=== PATIENT | female | born 2000 | race Caucasian/White ===

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

== ENCOUNTER 2019-08-18 22:02 | Outpatient (REF) | payer MEDICAID, SELFPAY ==
[2018-08-31 14:39] VITALS: BMI 24.7
[2019-08-18 22:02] VITALS: BP 128/75; PULSE 71; RESP 16; TEMP 36.6; O2SAT 98; BMI 19.1
--- NOTE | 2019-08-18 22:15 | ED.DCSUM_ITS ---
History of Present Illness Chief Complaint: Abd Pain Informant: Patient Onset: Weeks - 1.5 weeks ago Context: Sudden Onset Timing: Continuous Quality: Burning pain Location: Superior and lateral umbilicus Current Severity: Mild Maximum Severity: Moderate Worsened by: Twisting Relieved by: Nothing Associated Symptoms: No associated symptoms Narrative: Patient is a 18-year-old female who presents with burning anterior midline abdominal pain that is superior and lateral the umbilicus. She states there is a lump. There is no history of trauma. She denies fever, chills or night sweats. She denies nausea, vomiting diarrhea. She denies dysuria, frequency, urgency or hematuria. She denies change in color of her skin. She denies weight loss. She denies prior episode. She has not taken anything for the discomfort. Prior similar symptoms: No Recent Illness/Hospitalization: No - Past Medical History (1) No significant past medical history Status: Acute Past Medical History - Allergies and Home Meds Allergies/Adverse Reactions: Allergies amoxicillin trihydrate [From Augmentin] Adverse Reaction (Verified 08/18/19 22:05) Hives potassium clavulanate [From Augmentin] Adverse Reaction (Verified 08/18/19 22:05) Hives Primary Care Physician: Barrington Johnson MD [Primary Care Provider] - Prior records reviewed: Yes Lives: Spouse/ Significant Other, With Family Smoking Status: Current every day smoker Alcohol: Rare Drugs: None Review of Systems General: Denies: Chills, Fever, Malaise, Sweats Gastrointestinal: Reports: Abdominal pain. Denies: Nausea, Vomiting, Diarrhea, Constipation, Melena, Hematochezia, -, - Musculoskeletal: Denies: Myalgias, Arthralgias, Neck pain, Back pain, Swelling, Extremity Pain, -, - Skin: Denies: Rash, Wounds Neurological: Denies: Weakness, Parasthesia, Numbness Hematologic: Denies: Easy bruising, Easy bleeding Physical Exam Vital Signs/Narrative: Vital Signs Temp Pulse Resp BP Pulse Ox 08/18/19 22:02 97.9 F 71 16 128/75 H 98 Inital Vital Signs reviewed: Yes General: Well nourished, Well developed, No Acute Distress Head: Normocephalic, Atraumatic Eyes: Perrl, EOMI. Negative for: Pale conjunctiva, Scleral icterus Cardiovascular: Regular rate, Regular rhythm, No murmurs Respiratory: No distress, CTA bilaterally, Chest nontender Abdomen: Soft, Nondistended, Normal bowel sounds, No masses, Tender, - - The area in question is patient's rectus muscle. Having her flex her neck causes the pain to be worse and the area in question is more prominent.. Negative for: Guarding, Rebound tenderness Neurological: Alert, Oriented x3, Cranial nerves II-XII grossly intact, Normal Strength, Normal Sensation Psychological: Normal affect, Normal Mood Diagnostic/Tx/Re-eval - Medical Decision Making Patient presents with abdominal pain. Based on history and physical this is abdominal wall pain i.e. the rectus muscle. Patient's been informed ice anti- inflammatory and if no improvement after a week follow-up with her primary care provider, Dr. Barrington Johnson. ED Disposition - Plan for ED Patient: Disposition: Home or Assisted Living Diagnosis: Abdominal wall pain in periumbilical region Instructions: MUSCLE STRAIN, Abdomen Referrals: Barrington Johnson MD [Primary Care Provider] - Additional Instructions: Take either 2 Aleve tablets every 12 hours or 3 Advil tablets every 8 hours for pain for the next 3 to 5 days. Apply ice 20 to 30 minutes per application 6-8 times a day.
[2019-08-18 23:02] VITALS: RESP 15
== END 2019-08-18 23:02 | disposition home or self-care (01) ==
LOC: ED 22:02
PROVIDERS: Family Provider Pediatrics; PCP Pediatrics; Visit Provider Emergency Medicine
DX: R10.33 Periumbilical pain (principal); F17.200 Nicotine dependence, unspecified, uncomplicated; Z88.0 Allergy status to penicillin
CPT/HCPCS: 99282

== ENCOUNTER → 2019-09-13 16:16 | Outpatient (CLI) | payer MEDICAID, SELFPAY ==
[2019-08-18 22:02] VITALS: BMI 19.1
== END ==
PROVIDERS: Family Provider Pediatrics; PCP Pediatrics; Referring Provider Nurse Practitioner Women's Health; Visit Provider Nurse Practitioner Women's Health
DX: N92.6 Irregular menstruation, unspecified (principal)
CPT/HCPCS: 36415; 84702

== ENCOUNTER → 2019-09-22 16:47 | Outpatient (CLI) | payer MEDICAID, SELFPAY ==
[2019-09-22 19:33] LABS: Chlamydia Trachomatis by PCR Negative (Negative); Neisserai gonorrhoeae by PCR Negative (Negative); Probe Check PASS; Sample Adequacy Control PASS; Specimen Processing Control PASS
== END ==
PROVIDERS: Referring Provider Obstetrics & Gynecology; Visit Provider Obstetrics & Gynecology
DX: Z34.00 Encounter for supervision of normal first pregnancy, unspecified trimester (principal)
CPT/HCPCS: 87077; 87086; 87088; 87186; 87491; 87591

== ENCOUNTER → 2019-11-17 15:03 | Outpatient (CLI) | payer MEDICAID, SELFPAY ==
[2019-11-17 14:33] VITALS: BMI 19.5
[2019-11-17 16:27] LABS: Absolute Lymphocyte Count 3.68 X10^3/uL (0.83-4.51); Absolute Neutrophil Count 6.6 X10^3/uL (2.0-7.7); Basophil# 0.02 X10^3/uL; Basophil% 0.2 % (0-1); Eosinophil# 0.06 X10^3/uL; Eosinophils% 0.6 % (0-5); Hematocrit 36.3 % (37-47); Hemoglobin 12.2 g/dL (12.0-15.0); Lymphocyte # 3.68 X10^3/ul (4.0); Lymphocyte % 33.9 % (19-41); Mean Corp Hgb Conc 33.6 g/dL (32-36); Mean Corpuscular Hgb 30.4 pg (27.0-32.0); Mean Corpuscular Volume 90.5 fL (81-99); Mean Platelet Vol. 9.4 fl (6.2-12.0); Monocyte# 0.43 X10^3/uL; NRBC Flagged by Analyzer 0 % (0-5); Neutrophil # 6.61 X10^3/uL (2.7-7.7); Neutrophil % 60.9 % (47-70); Platelet Count 188 K/mm3 (150-450); RBC Distribution Width CV 14.4 % (11.6-14.6); RBC Distribution Width SD 47.5 fl (35.1-43.9); Red Blood Count 4.01 M/mm3 (4.2-5.4); White Blood Count 10.8 K/mm3 (4.4-11.0)
[2019-11-17 18:03] LABS: HIV - WCH Non-Reactive (Nonreactive); Hepatitis B Surface Antigen Non-Reactive (Nonreactive); Rubella IgG 25.3 IU/mL
[2019-11-23 02:39] LABS: Rapid Plasmin Reagin (RPR) NONREACTIVE (NONREACTIVE)
== END ==
PROVIDERS: PCP Pediatrics; Referring Provider Obstetrics & Gynecology; Visit Provider Obstetrics & Gynecology
DX: Z34.00 Encounter for supervision of normal first pregnancy, unspecified trimester (principal)
CPT/HCPCS: 36415; 85025; 86592; 86703; 86762; 86850; 86900; 86901; 87340

== ENCOUNTER 2020-02-15 17:00 | Outpatient (CLI) | payer MEDICAID, SELFPAY ==
[2020-02-15 17:14] VITALS: BMI 24.7
[2020-02-15 17:26] VITALS: BMI 24.4
[2020-02-15 17:42] VITALS: BP 115/63; PULSE 90; TEMP 37.2
[2020-02-15 18:15] LABS: ROM Internal Control Test YES-OK TO RESULT pt. (Internal QC); ROM Patient Test Negative (Negative)
--- NOTE | 2020-02-15 18:18 | OB.TRI.PN_ITS ---
Progress Notes Date of Service: 02/15/20 Progress Note: Patient presents for triage evaluation secondary to irregular ctx FHT: 150 Moderate variability reactive no decelerations category I tracing [place]: no regular Contractions Assessment and plan: 19 yo @ 30w6d presents with contractions. no significant contractions or cervical change, Reactive NST, reassuring maternal and status patient discharged to home to follow-up as scheduled. patient has been noncompliant with medical visits in . See problem list details for additional plan information. Laboratory Studies: Laboratory Tests 02/15/20 Range/Units 17:20 Vag Amniotic Fld Detect Negative (Negative) Multi Select Codes - Urinary/Genital Urinary/Genital CPT Codes: 02349-67 non-stress test Interp
== END 2020-02-15 18:25 | disposition home or self-care (01) ==
LOC: WPOUT 17:16 → WP 17:16
PROVIDERS: Visit Provider Obstetrics & Gynecology
DX: Z34.83 Encounter for supervision of other normal pregnancy, third trimester (principal); Z3A.30 30 weeks gestation of pregnancy
CPT/HCPCS: 59025; 59050; 84112; 99218; G0378

== ENCOUNTER → 2020-02-23 16:24 | Outpatient (CLI) | payer MEDICAID, SELFPAY ==
[2020-02-23 15:48] VITALS: BMI 24.4
[2020-02-23 17:40] LABS: Absolute Lymphocyte Count 2.72 X10^3/uL (0.83-4.51); Absolute Neutrophil Count 8.7 X10^3/uL (2.0-7.7); Basophil# 0.02 X10^3/uL; Basophil% 0.2 % (0-1); Eosinophil# 0.07 X10^3/uL; Eosinophils% 0.6 % (0-5); Hematocrit 33.5 % (37-47); Hemoglobin 11.1 g/dL (12.0-15.0); Lymphocyte # 2.72 X10^3/ul (4.0); Mean Corp Hgb Conc 33.1 g/dL (32-36); Mean Corpuscular Hgb 29.6 pg (27.0-32.0); Mean Corpuscular Volume 89.3 fL (81-99); Monocyte% 5.6 % (0-10); NRBC Flagged by Analyzer 0 % (0-5); Neutrophil # 8.72 X10^3/uL (2.7-7.7); Neutrophil % 70.3 % (47-70); Platelet Count 156 K/mm3 (150-450); RBC Distribution Width SD 41.7 fl (35.1-43.9); Red Blood Count 3.75 M/mm3 (4.2-5.4); White Blood Count 12.4 K/mm3 (4.4-11.0)
[2020-02-23 18:25] LABS: Glucose Challenge Gest 1H 50g 103 mg/dL (70-140)
== END ==
PROVIDERS: PCP Pediatrics; Referring Provider Obstetrics & Gynecology; Visit Provider Obstetrics & Gynecology
DX: Z34.80 Encounter for supervision of other normal pregnancy, unspecified trimester (principal)
CPT/HCPCS: 36415; 82950; 85025; 87086; 87088

== ENCOUNTER 2020-03-28 16:42 | Emergency (ER) | payer MEDICAID, SELFPAY ==
[2020-03-22 16:08] VITALS: BMI 24.4
[2020-03-28 16:43] VITALS: BP 132/72; PULSE 90; RESP 17; TEMP 36.4; O2SAT 98; BMI 26.4
--- NOTE | 2020-03-28 16:56 | ED.VISSUMM ---
- ER Visit Summary Date of Service: 03/28/20 Chief Complaint: Rash History of Present Illness: The patient is a 19 F who presents with a rash that began 1 week ago but became worse last night. Patient states the rash started on her abdomen but has now progressed to her upper and lower extremities. Patient states the rash is pruritic and burning. Patient states it is worse with any palpation. Patient denies any shortness of breath or difficulty swallowing. Patient denies any new exposures. Patient states she is approximately 37 weeks . Patient denies any vaginal bleeding or discharge. Patient denies any cramping. Patient states she had an appoint with her DIRECTOR OF PROGRAM MANAGEMENT today but was unable to make that appointment so she came to the emergency department instead Physical Examination: Vital signs are stable. Patient is afebrile. Patient is in no acute distress. Oral mucosa is pink and moist. Neck is supple. Trachea is midline. There is no JVD. Skin is warm and dry. There is a patchy erythematous maculopapular rash over the abdomen, bilateral upper extremities, and bilateral thighs. There are no vesicles or pustules noted. There are no petechia noted. There is no involvement of the mucous membranes. Cranial nerves II through XII are intact. There are no focal motor or sensory deficits noted. Abdomen is soft. Bowel sounds are normal. There is a gravid uterus. There is no tenderness. Emergency Department Course and Treatment: Patient was given a prescription for hydrocortisone cream. Patient was instructed to apply twice daily. Patient was instructed to follow-up with her DIRECTOR OF PROGRAM MANAGEMENT in 5 to 7 days. Patient understood and was agreeable with the plan. All questions were answered. Disposition: Discharge home Impression: Dermatitis This note was generated with Prim[employer] dictation software. It may contain incorrect words, spelling, and punctuation that were not noted in review of the chart prior to signing ED Disposition - Plan for ED Patient: Disposition: Home or Assisted Living Diagnosis: Dermatitis, Instructions: ED DERMATITIS Atopic Eczema Prescriptions: Hydrocortisone 2.5% Crm [Hytone] 1 applic TOPICAL BID.TCU #15 g Prescription Printed Referrals: Barrington Johnson MD [Primary Care Provider] - 5-7 Days
[2020-03-28 17:37] VITALS: RESP 18
== END 2020-03-28 17:39 | disposition home or self-care (01) ==
LOC: ED 17:15
PROVIDERS: Emergency Provider Emergency Medicine; PCP Pediatrics
DX: O99.713 Diseases of the skin and subcutaneous tissue complicating pregnancy, third trimester (principal); L30.9 Dermatitis, unspecified; Z3A.37 37 weeks gestation of pregnancy
CPT/HCPCS: 99282

== ENCOUNTER 2020-03-30 07:00 | Inpatient (IN) | payer MEDICAID, SELFPAY ==
[2020-03-29 16:04] VITALS: BMI 26.4
[2020-03-30] VITALS (19 sets, daily range): BP systolic 109–133; BP diastolic 58–77; PULSE 64–98; RESP 16–18; TEMP 36.2–37.1; O2SAT 96–99; BMI 26.3
[2020-03-30] MEDS: Lactated Ringers 1,000 ML 200 ML IV (07:15)
[2020-03-30 07:25] LABS: Absolute Lymphocyte Count 2.19 X10^3/uL (0.83-4.51); Absolute Neutrophil Count 19.5 X10^3/uL (2.0-7.7); Basophil# 0.04 X10^3/uL; Basophil% 0.2 % (0-1); Eosinophil# 0.03 X10^3/uL; Eosinophils% 0.1 % (0-5); Hemoglobin 12.3 g/dL (12.0-15.0); Lymphocyte # 2.19 X10^3/ul (4.0); Lymphocyte % 9.5 % (19-41); Mean Corp Hgb Conc 32.4 g/dL (32-36); Mean Corpuscular Hgb 27.8 pg (27.0-32.0); Mean Platelet Vol. 10.5 fl (6.2-12.0); Monocyte# 0.96 X10^3/uL; Monocyte% 4.2 % (0-10); NRBC Flagged by Analyzer 0 % (0-5); Neutrophil # 19.54 X10^3/uL (2.7-7.7); Neutrophil % 84.6 % (47-70); Platelet Count 211 K/mm3 (150-450); RBC Distribution Width CV 13.2 % (11.6-14.6); RBC Distribution Width SD 40.7 fl (35.1-43.9); Red Blood Count 4.42 M/mm3 (4.2-5.4); White Blood Count 23.1 K/mm3 (4.4-11.0)
[2020-03-30] MEDS: Oxytocin 30 units/NS 500 ml 30 UNITS/500 ML IV.SOLN 334 UNITS IV (08:12)
--- NOTE | 2020-03-30 08:24 | PCM.HP.OB ---
- Problem List (1) Active labor at term Status: Acute (2) PUPP (pruritic urticarial papules and plaques of ) Status: Acute Comment: steroid (3) Positive GBS test Status: Acute Comment: PCN in labor (4) Status: Acute Qualifiers: Comment: declined ntd, carrier, nipt screening. (5) Supervision of normal , antepartum Status: Acute Qualifiers: Comment: PRR BLANCA 04/19/20 PC Shaylann BF Ryan (6) Synechia, intrauterine Status: Acute Comment: MAYNOR syndechia FU US in 4 wks from 02/01/2020, not seen at FU growth US (7) Urinary tract infection affecting , antepartum Status: Acute Comment: Repeat culture 02/22 GBS and contaminate only History Date of Admission: 09/05/18 Final BLANCA: 04/19/20 Final BLANCA Source: US <20 weeks Gestational age: 37 Weeks and 1 Days History of this : This is a 19 year-old, , at 37 weeks gestational age presents IAL 9 cm delivers precipitously Allergies amoxicillin Allergy (Verified 03/29/20 15:40) Hives clavulanic acid [From Augmentin] Allergy (Verified 03/29/20 15:40) Hives amoxicillin trihydrate [From Augmentin] Adverse Reaction (Verified 03/29/20 15:40) Hives potassium clavulanate [From Augmentin] Adverse Reaction (Verified 03/29/20 15:40) Hives Home Medications: Home Medications Pnv No.95/Ferrous Fum/Folic AC [ Vitamin Tablet] 1 ea PO DAILY 09/05/18 Hydrocortisone 2.5% Crm [Hytone] 1 applic TOPICAL BID.TCU 03/30/20 Methylprednisolone [Medrol] See Rx Instructions PO PER PKG DIR 03/30/20 Smoking Status: Never smoker Substance Use Type: Marijuana NST - FHR Rate Baby A Baseline: 130 Variability:: Moderate Accelerations:: 15 x 15 Decelerations:: None NST Reactive:: Yes FHR Category:: Category I Uterine Activity:: q 2-3 History Past Pregnancies: Past Pregnancies previous term uncomplicated Labs: Mom's Labs & Results 03/30/20 03/30/20 07:15 07:15 WBC 23.1 H RBC 4.42 Hgb 12.3 Hct 38.0 MCV 86.0 MCH 27.8 MCHC 32.4 RDW Std Deviation 40.7 RDW Coeff of Rachel 13.2 Plt Count 211 MPV 10.5 Immature Gran % (Auto) 1.400 H Neut % (Auto) 84.6 H Lymph % (Auto) 9.5 L [place] % (Auto) 4.2 Eos % (Auto) 0.1 Baso % (Auto) 0.2 Absolute Neuts (auto) 19.5 H Absolute Lymphs (auto) 2.19 Nucleated RBC % 0 Blood Type Pending Antibody Screen Pending Course Did the patient receive Yes care? Labs Blood Type: A RH: POSITIVE RPR/VDRL/Syphilis Nonreactive Rubella status Immune HbSAg Negative Date Done: 11/17/19 Chlamydia Negative Gonorrhea Negative HIV/AIDS Non-Reactive Group B Strep: Positive Social History Alleged father Jere Gupta Smoking No Smoking Status Never smoker Substance Use Type Marijuana What date/time did you last 03/28/2020 thc use any of the above? Expected Infant Delivery Method: Spontaneous Vaginal Review of Systems Constitutional: Denies: Fever, Malaise Eyes: Denies: Blurred vision, Vision Change HEENT: Denies: Head Aches, Visual Changes Cardiovascular: Denies: Chest Pain, Palpitations Respiratory: Denies: Cough, Shortness of Breath, Wheezing Gastrointestinal: Denies: Abdominal Pain, Diarrhea, Nausea, Vomiting Genitourinary: Denies: Dysuria, Hematuria Musculoskeletal: Denies: Joint Pain, Muscle pain Skin: Denies: Lesions, Rash Neurological: Denies: Blurred vision, Focal weakness, Headaches Psychiatric: Denies: Anxiety, Depression Endocrine: Denies: Heat/ Cold Intolerance Hematologic/ Lymphatic: Denies: Easy Bruising, Easy Bleeding Physical Exam Vitals: Vital Signs Temp Pulse BP Pulse Ox 98.1 F 84 121/71 H 96 03/30/20 07:04 03/30/20 08:19 03/30/20 08:19 03/30/20 07:11 General: Alert, Cooperative, No apparent distress HEENT: Atraumatic, Normocephalic. Negative for: Thyromegaly, Lymphadenopathy Cardiovascular: Regular rate Lungs: Normal air movement Abdomen: Soft, Non Tender, Gravid Neurological: Deep Tendon Reflexes 2+/4 and Symmetrical, Neuro grossly intact. Negative for: Clonus MECHANICAL PROJECT MANAGER: Normal external genitalia. Negative for: Vulvar lesions Estimated gestational size: Appropriate for gestational size Presentation: Cephalic Cervix Dilation (cm): 9 Assessment/Plan All Active Problems (Last Reviewed 03/29/20 @ 15:41 by Sonali Gallegos) Active labor at term (Acute) PUPP (pruritic urticarial papules and plaques of ) (Acute) Urinary tract infection affecting , antepartum (Acute) Positive GBS test (Acute) Synechia, intrauterine (Acute) Supervision of normal , antepartum (Acute) (Acute) 41 weeks gestation of (Resolved) False labor (Resolved) No significant past medical history (Resolved) Odontalgia (Resolved) (spontaneous vaginal delivery) (Resolved) Supervision of normal first (Resolved) This is a 19 year-old, , at 37 weeks gestational age presents IAL. IAL delivers precipitously gbs pos untreated
--- NOTE | 2020-03-30 08:27 | OP.PCM_ITS ---
Problem List (1) Active labor at term Status: Acute (2) PUPP (pruritic urticarial papules and plaques of ) Status: Acute Comment: steroid (3) Positive GBS test Status: Acute Comment: PCN in labor (4) Status: Acute Qualifiers: Comment: declined ntd, carrier, nipt screening. (5) Supervision of normal , antepartum Status: Acute Qualifiers: Comment: PRR BLANCA 04/19/20 PC Shaylann BF Ryan (6) Synechia, intrauterine Status: Acute Comment: MAYNOR syndechia FU US in 4 wks from 02/01/2020, not seen at FU growth US (7) Urinary tract infection affecting , antepartum Status: Acute Comment: Repeat culture 02/22 GBS and contaminate only Vaginal Delivery Maternal Presentation: Active Labor ial 9 cm Amniotic Fluid Description: Clear Final BLANCA: 04/19/20 Gestational age: 37 Weeks and 1 Days Date of Procedure: 03/30/20 Pre-Operative Diagnosis: ial Post-Operative Diagnosis: same Surgery/ Procedure Performed: Spontaneous Vaginal Delivery Type of Anesthesia: None Description of Procedure: Patient began pushing and delivered the head in the KEVYN presentation. The head was delivered atraumatically . The anterior and posterior shoulders delivered without complication followed by the rest of the and the infant was placed on the maternal abdomen. Delayed cord clamping was employed for approximately 60 seconds. Cord was clamped and cut and gentle traction was applied to the cord and the placenta delivered spontaneously immediately following it was noted to be intact with three-vessel cord. The perineum and vagina were inspected and noted to have no laceration. EBL was 300 cc. Patient and infant tolerated delivery well. Presentation: KEVYN Placental Delivery Description: Spontaneous Placenta Disposition: [facility] Cord Vessel Description: 3 Vessels Cord Entanglement: None Estimated Blood Loss: 300 Infant A gender: Female (1 minute): 8 (5 minute): 9 Episiotomy Description: None Laceration: None Medications given after delivery: IV Pitocin Complications: None Multi Select Codes - Urinary/Genital Urinary/Genital CPT Codes: 17077 Vaginal Delivery+ PP Care([facility])
[2020-03-30 11:50] LABS: Amphetamine Urine VISTA NEGATIVE (<1000 ng/mL); Barbiturate Urine VISTA NEGATIVE (< 200 ng/mL); Benzodiazepine Urine VISTA NEGATIVE (< 200 ng/mL); Cocaine Urine VISTA NEGATIVE (< 300 ng/mL); Ecstacy Urine VISTA NEGATIVE (< 500 ng/mL); Methadone Urine VISTA NEGATIVE (< 300 ng/mL); PCP Urine VISTA NEGATIVE (< 25 ng/mL); THC Urine VISTA NEGATIVE (< 50 ng/mL); Vista UDS pH Range 6
--- NOTE | 2020-03-30 18:00 | CASEMGMT ---
Social Work Assessment Labor and Delivery Unit Date of Referral: 03/30/2020 Date of Intervention: 03/30/2020 Time of Intervention: 18:00 Reason for Referral: HISTORY OF SUBSTANCE USE-THC DURING History obtained from: MEDICAL RECORD, MOTHER OF BABY (MOB) AND FATHER OF BABY (FOB) Household composition: MOB, MOB?S [id number] DAUGHTER, WILMA AND FOB- EMERITA PATEL. 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 Supplies: MOB AND FOB REPORT TO HAVE ALL NEEDS MET FOR BABY INCLUDING; DIAPERS, WIPES, CLOTHES, CAR SEAT, CRIB, ETC. Childcare/Caregiver(s): MOB AND FOB WILL BE MAIN CAREGIVERS. MOB REPORTS GOOD SUPPORT FROM FAMILY WHO LIVE LOCALLY. Transportation: MOB AND FOB DO NOT DRIVE, BUT HAVE ACCESS TO TRANSPORTATION WHEN NEEDED BY FAMILY. Programs/Agencies Involved: [facility], [facility] Children Services/Legal Issues: MOB REPORTS NO INVOLVEMENT WITH CHILDREN SERVICES OR LEGAL ISSUES. Behavioral Health Issues: Mental Health History: MOB DENIES ANY HISTORY OF MENTAL HEALTH. Substance Use History: PER CHART, MOB HAD ADMITTED TO MARIJUANA USE. WHEN ASKED DURING ASSESSMENT BY THIS WORKER, MOB DENIED. WHEN DISCUSSED REVIEW OF CHART MOB THEN ADMITTED TO MARIJUANA USE 4 DAYS AGO. PER CHART REVIEW AND DISCUSSION WITH NURSE, URINE TOX FOR MOB AND BABY ARE NEGATIVE. MECONIUM HAS BEEN COLLECTED. WILL WATCH FOR RESULTS. INFORMED MOB IF BABY?S MECONIUM IS POSITIVE, WILL REPORT TO CHILDREN SERVICES. MOB VERBALIZED UNDERSTANDING. Support Systems: MOB AND FOB REPORT GOOD SUPPORT FROM FAMILY AND EACH OTHER. Depression/Shaken Baby/Safe Sleeping REVIEWED AND EDUCATIONAL RESOURCES PROVIDED. ASSESSMENT: MET WITH MOB AND FOB IN ROOM. MOB NURSING BABY GIRL, SHIN PATEL UPON ENTERING ROOM. RECEIVED PERMISSION TO COMPLETE ASSESSMENT AT THIS TIME. MOB AND FOB LIVE HOME TOGETHER WITH MOB?S [id number] DAUGHTER, WILMA. MOB AND FOB REPORT TO BE BONDING WELL WITH BABY. MOB IS AND STATES IT IS GOING WELL. FOB VERY ATTENTIVE SITTING IN FRONT OF MOB ON BED AND ASSISTING MOB NEEDED. FOB REPORTS THIS IS HIS FIRST CHILD. MOB AND FOB REPORT TO HAVE ALL NEEDS MET FOR BABY. BOTH REPORT DO NOT DRIVE, BUT HAVE ACCESS TO TRANSPORTATION WHEN NEEDED. DISCUSSED RECENT USE OF MARIJUANA. URINE TOX FOR MOB AND BABY ARE NEGATIVE. WILL AWAIT RESULTS OF MECONIUM. MOB DENIES ANY HISTORY WITH CHILDREN SERVICES. REVIEWED EDUCATIONAL RESOURCES FOR COMMUNITY, DEPRESSION, SHAKEN BABY, AND SAFE SLEEPING. EDUCATED MOB ON HELP ME GROW. MOB INTERESTED IN REFERRAL. MOB AND FOB DENY ANY FURTHER NEEDS. EDUCATIONAL RESOURCES GIVEN. NURSING UPDATED ON THE ABOVE AND VOICE NO FURTHER CONCERNS. PLAN: HOME WITH RESOURCES PROVIDED, REFERRAL TO HELP ME GROW, WILL WATCH FOR MECONIUM RESULTS. No other services requested or indicated. -Darline Mathew, SCREEN PRINTING SUPERVISOR, EGG PRODUCER
--- NOTE | 2020-03-30 18:30 | CASEMGMT ---
SOCIAL WORK REFERRAL FOR HELP ME GROW SUBMITTED VIA SECURE ONLINE FORM.
[2020-03-31] VITALS (11 sets, daily range): BP systolic 108–119; BP diastolic 57–73; PULSE 64–77; RESP 16–18; TEMP 36.7–37.6; O2SAT 97–99
--- NOTE | 2020-03-31 14:24 | PCM.PN.OB ---
Patient Problems: Active and Suspected Problems (Last Reviewed 03/29/20 @ 15:41 by Sonali Gallegos) Active labor at term (Acute) Subjective: doing well no complaints pain controlled no CP SOB N V ambulating well tolerating po lochia moderate, going well - Physical Exam Vitals/I&O's: Vital Signs Temp Pulse Resp BP Pulse Ox 99.6 F H 64 16 119/67 97 03/31/20 09:15 03/31/20 14:09 03/31/20 09:15 03/31/20 14:09 03/31/20 09:15 Oxygen Delivery Method Room Air Weight: 148 lb 12.992 oz Body Mass Index (BMI) 26.3 Intake and Output for Last 24 Hours 03/29/20 03/30/20 03/31/20 23:59 23:59 23:59 Intake Total 1090 / 1090 Output Total 450 / 450 Balance 640 / 640 General: Alert, Oriented x3 Current Medications Acetaminophen (Tylenol) 1,000 mg PO Q8H PRN PRN PRN Reason: Pain Score 1-3/10 Bisacodyl (Dulcolax) 10 mg RECTAL UD PRN PRN Reason: If no BM Dibucaine (Dibucaine) 1 applic TOPICAL TID PRN PRN; Protocol PRN Reason: Discomfort Hydrocortisone (Hytone) 1 applic TOPICAL TID PRN PRN; Protocol PRN Reason: Discomfort Methylergonovine Maleate (Methergine) 0.2 mg IM X1 PRN PRN Reason: Excess bleeding/uterine atony Naproxen (Naprosyn) 500 mg PO Q8H PRN PRN PRN Reason: Pain Score 1-3/10 Ondansetron HCl (Zofran) 4 mg IV Q4H PRN PRN PRN Reason: Nausea Oxycodone HCl (Oxyir) 5 - 10 mg PO Q4H PRN PRN PRN Reason: Pain Score 4-10/10 Senna/Docusate Sodium (Senokot-S, [place]-Colace) 1 - 2 tablet PO DAILY PRN PRN PRN Reason: Constipation Simethicone (Mylicon) 80 mg PO PCHS PRN PRN Reason: Indigestion/Stomach pain Sodium Chloride () 5 - 15 ml IV UD PRN PRN Reason: SALINE FLUSH Medical Necessity - Tobacco Use Smoking Status: Never smoker Assessment/Plan All Active Problems (Last Reviewed 03/29/20 @ 15:41 by Sonali Gallegos) Active labor at term (Acute) PUPP (pruritic urticarial papules and plaques of ) (Acute) Urinary tract infection affecting , antepartum (Acute) Positive GBS test (Acute) Synechia, intrauterine (Acute) Supervision of normal , antepartum (Acute) (Acute) 41 weeks gestation of (Resolved) False labor (Resolved) No significant past medical history (Resolved) Odontalgia (Resolved) (spontaneous vaginal delivery) (Resolved) Supervision of normal first (Resolved) s/p PPD # 1 1. routine post delivery care 2. breast feeding- support given 3. rh positive 4. rubella immune1
--- NOTE | 2020-03-31 14:25 | DCINST_ITS ---
Discharge Diet: No Restrictions Discharge Activity: Return to Normal Activity, May not drive while taking narcotic pain medications., May Shower May resume sexual activity in: 4-6 weeks Call your doctor if your incision/area has: Continuous Slow Oozing, Sudden Increased Bleeding, Increased Pain/ Swelling, Increased Redness, Foul Smelling Discharge Additional Instructions: If you experience any of the following, contact your healthcare provider. * Bleeding that soaks a pad every hour for 2 hours * Fever 100.4 or higher * Unrelieved incision or abdominal pain * Swelling, redness, discharge or bleeding from your incision or episiotomy site * Your incision begins to separate * Problems urinating (including inability to urinate or burning while urinating). * Visual changes * Severe headache * Flu-like symptoms * Pain or redness in one of both of your breasts * Pain, warmth, tenderness or swelling in your legs, especially the calf area * Frequent nausea and vomiting * Symptoms of depression or anxiety If you experience any of the following, call 911 or go to the nearest Emergency Room. * Chest pain * Problems breathing * Seizure activity * Partial or complete paralysis of a body part, slurred speech, weakness or drooping of the face, or a sudden inability to walk or hold your balance Allergies/Adverse Reactions: Allergies amoxicillin Allergy (Verified 03/29/20 15:40) Hives clavulanic acid [From Augmentin] Allergy (Verified 03/29/20 15:40) Hives amoxicillin trihydrate [From Augmentin] Adverse Reaction (Verified 03/29/20 15:40) Hives potassium clavulanate [From Augmentin] Adverse Reaction (Verified 03/29/20 15:40) Hives Medications to take at Discharge Pnv No.95/Ferrous Fum/Folic AC [ Vitamin Tablet] 1 ea PO DAILY 09/05/18 Hydrocortisone 2.5% Crm [Hytone] 1 applic TOPICAL BID.TCU 03/30/20 Methylprednisolone [Medrol] See Rx Instructions PO PER PKG DIR 03/30/20 Hydrocortisone 2.5% Crm [Hytone] 1 applic TOPICAL TID PRN PRN #1 tube 03/31/20 The following prescriptions were given: Hydrocortisone 2.5% Crm [Hytone] 1 applic TOPICAL TID PRN PRN #1 tube PRN Reason: Rash/Topical Irritation Transmission Status: Pending to [employer] #30 Please Follow Up With: Rosy Bolck MD - [phone] When: Call to make an appointment with your doctor in 6 weeks. If you had elevated Blood pressure or 4th degree laceration you will need to be seen in 2 weeks. Primary Care Physician: Barrington Johnson MD [Primary Care Provider] - Test Results: Test results from this visit will be discussed in further detail at your follow- up appointment, if applicable.
--- NOTE | 2020-04-01 14:55 | CASEMGMT ---
SOCIAL WORK REPORT MADE TO CHILDREN SERVICES REGARDING MOB'S USE OF MARIJUANA DURING . REPORT MADE TO [facility]. AWAITING MECONIUM RESULTS. Enid RAMIRES, COAL DIGGER, MANAGER CULTURE.
== END 2020-03-31 20:10 | disposition home or self-care (01) | DRG 560 ==
LOC: WP 07:00 → WPOUT 07:15 → WP 08:19
PROVIDERS: Admitting Provider Obstetrics & Gynecology; PCP Pediatrics; Referring Provider Obstetrics & Gynecology; Visit Provider Obstetrics & Gynecology
DX: O62.3 Precipitate labor (principal); O99.824 Streptococcus B carrier state complicating childbirth; N85.6 Intrauterine synechiae; O26.86 Pruritic urticarial papules and plaques of pregnancy (PUPPP); Z79.899 Other long term (current) drug therapy; Z37.0 Single live birth; Z3A.37 37 weeks gestation of pregnancy
CPT/HCPCS: 59025; 59050; 80307; 85025; 86850; 86900; 86901; 99218; 99282; J7120; G0378

== ENCOUNTER 2021-12-22 22:51 | Emergency (ER) | payer MEDICAID, SELFPAY ==
[2021-12-22 22:52] VITALS: BP 114/74; PULSE 78; RESP 16; TEMP 36.9; O2SAT 98; BMI 18.8
--- NOTE | 2021-12-22 23:21 | EKG12_ITS ---
Test Reason : MENTAL HEALTH Blood Pressure : / mmHG Vent. Rate : 070 BPM Atrial Rate : 070 BPM P-R Int : 140 ms QRS Dur : 082 ms QT Int : 444 ms P-R-T Axes : 000 -04 -30 degrees QTc Int : 479 ms Normal sinus rhythm Lateral infarct , age undetermined , cannot be excluded Abnormal ECG Confirmed by JEET MAN, MARIE ([id number]), food expeditor EVGENY ANDREW ([id number]) on 12/25/2021 10:05:30 AM Referred By: ELVA Confirmed By:MARIE MARCANO MD
--- NOTE | 2021-12-23 02:10 | ED.RN ---
PATIENT WALKED OUT OF DEPARTMENT WITH SIGNIFICANT OTHER. PATIENT NOT PINK SLIPPED. DR. PIRES NOTIFIED.
[2021-12-23 06:04] LABS: Internal QC Validated? YES +Cl - CLEAR BKGD; Pregnancy, Urine Negative Negative
[2021-12-23 06:36] LABS: BUN 14 mg/dL (7-18); BUN/Creat Ratio 18.2 RATIO (10-20); Chloride 109 mmol/L (98-107); Creatinine, Serum 0.77 mg/dL (0.55-1.02); EST Glomerular Filtration Rate 100 mL/min (>60); Est Glom Filt Rate - Afr Amer 121 mL/min (>60); Estimated Creatinine Clearance 87.02 ml/min; Glucose 110 mg/dL (74-106); Potassium 3.7 mmol/L (3.5-5.1); Sodium Level 139 mmol/L (136-145)
[2021-12-23 06:38] LABS: Anion Gap 5 (5-15)
[2021-12-23 07:21] LABS: Salicylate < 1.7 mg/dL (2.8-20.0)
[2021-12-23 07:22] LABS: Acetaminophen (Tylenol) Level < 2.0 ug/mL (10.0-30.0); Alcohol, Blood (Medical)-Serum < 3.0 mg/dL
[2021-12-23 07:34] LABS: Amphetamine Urine VISTA NEGATIVE (<1000 ng/mL); Barbiturate Urine VISTA NEGATIVE (< 200 ng/mL); Benzodiazepine Urine VISTA NEGATIVE (< 200 ng/mL); Cocaine Urine VISTA NEGATIVE (< 300 ng/mL); Ecstacy Urine VISTA NEGATIVE (< 500 ng/mL); Methadone Urine VISTA NEGATIVE (< 300 ng/mL); PCP Urine VISTA NEGATIVE (< 25 ng/mL); THC Urine VISTA NEGATIVE (< 50 ng/mL); Vista UDS pH Range 5
[2021-12-23 08:07] LABS: Absolute Lymphocyte Count 1.45 X10^3/uL (0.83-4.51); Absolute Neutrophil Count 7.8 X10^3/uL (2.0-7.7); Basophil# 0.03 X10^3/uL; Basophil% 0.3 % (0-1); Hematocrit 42.3 % (37-47); Lymphocyte # 1.45 X10^3/ul (0.83-4.51); Lymphocyte % 15.1 % (19-41); Mean Corp Hgb Conc 33.1 g/dL (32-36); Mean Corpuscular Hgb 29.4 pg (27.0-32.0); Mean Corpuscular Volume 88.7 fL (81-99); Mean Platelet Vol. 10.8 fl (6.2-12.0); Monocyte# 0.33 X10^3/uL; Monocyte% 3.4 % (0-10); NRBC Flagged by Analyzer 0 % (0-5); Neutrophil # 7.79 X10^3/uL (2.7-7.7); Platelet Count 196 K/mm3 (150-450); RBC Distribution Width CV 12.1 % (11.6-14.6); RBC Distribution Width SD 39.7 fl (35.1-43.9); Red Blood Count 4.77 M/mm3 (4.2-5.4); White Blood Count 9.6 K/mm3 (4.4-11.0)
--- NOTE | 2021-12-23 08:10 | EDS_ITS ---
HPI History of Present Illness Chief Complaint: Mental Health Narrative Narrative: Patient is a 21-year-old female who was brought in by EMS for mental health evaluation. Boyfriend states that patient appears to be withdrawn and just different today and he states that he kept asking her questions about what was going on. He reports that the patient would not talk to him but was able to follow commands and move without difficulty. He reports that she became very emotional and he was concerned for her mental health and called EMS. EMS confirms that she would not speak but was able to follow commands and ambulate without difficulty and did appear distraught and therefore she was brought in for evaluation. Upon arrival to the hospital the patient refuses to speak once again and will not offer any further history [facility] Medical History (Updated 12/23/21 @ 08:[address] Bryan Werner DO) Home Medications PNV cmb#95-ferrous fumarate-FA 1 ea PO DAILY 09/05/18 [History Last Taken 02/15/20 08:00] hydrocortisone 1 applic TOPICAL BID.TCU 03/30/20 [History Last Taken Unknown] methylprednisolone See Rx Instructions PO PER PKG DIR 03/30/20 [History Last Taken 03/29/20 17:00] hydrocortisone 1 applic TOPICAL TID PRN PRN #1 tube 03/31/20 [Rx Last Taken Unknown] Allergy/AdvReac Type Severity Reaction Status Date / Time amoxicillin Allergy Hives Verified 12/22/21 22:59 clavulanic acid Allergy Hives Verified 12/22/21 22:59 [From Augmentin] amoxicillin trihydrate AdvReac Hives Verified 12/22/21 22:59 [From Augmentin] potassium clavulanate AdvReac Hives Verified 12/22/21 22:59 [From Augmentin] Family History Unknown Diabetes Social History (Updated 03/29/20 @ 16:[address] Rosy Block MD) Smoking Status: Unknown if ever smoked alcohol intake: never substance use type: does not use caffeine: Yes what type of physical activity do you participate in: walking seatbelt use: always do you feel safe at home: Yes additional social history: Single- Unemployed Ryan works at [employer] ROS ROS ED Review of Systems ROS Unobtainable: other Details: Unable to obtain review of systems as patient i s uncooperative and refuses to speak EXAM Physical Exam Const Vital Signs: 12/22/21 22:52 Temperature 98.5 F Temperature Source Temporal Pulse Rate 78 Respiratory Rate 16 Blood Pressure 114/74 Blood Pressure Mean 87 Pulse Ox 98 Oxygen Delivery Method Room Air Positive well nourished and well developed General Appearance ED: well developed Eyes PERRL and EOMs intact bilaterally Neck supple Resp normal respiratory effort and clear to auscultation bilaterally Cardio regular rate and regular rhythm GI normal to inspection, nondistended, normoactive bowel sounds, non-tender, non- distended and no masses Auscultation: normoactive bowel sounds Palpation: soft Extremity normal to inspection Neuro CN's II-XII intact bilaterally Sensorium / Orientation: alert Motor Exam: strength 5/5 throughout Psych Attitude: agitated Mood & Affect: depressed and tearful Skin no rashes or lesions noted MDM MDM MDM Narrative Medical decision making narrative: Patient arrived to the ER with stable vitals she had a depressed and tearful affect and was refusing to speak to me about her situation which led to these feelings. However she was heard speaking with her boyfriend and she was witnessed to have a steady gait and could move all extremities without difficulty and had a nonfocal neuro exam. I informed the patient that she needed to talk directly to me in order to discuss any risk factors for possible hurting herself and as she was unwilling to do so at this time she was going to undergo a psychiatric work-up. The psychiatric work-up was obtained and reveals no acute finding. Patient was in the ER for multiple hours but then reported to nursing staff that she no longer felt the symptoms that brought her in this evening and at this time I feel this is more behavioral in nature and as I have low concern that this is any type of risk to herself or others through homicidal or suicidal ideation she can be discharged and follow- up on an outpatient basis Lab Data Attestation: I reviewed the patient's lab results. Labs: Laboratory Results - last 24 hr 12/22/21 12/22/21 12/22/21 23:50 23:50 23:55 Sodium 139 Potassium 3.7 Chloride 109 H Carbon Dioxide 25.0 Anion Gap 5 BUN 14 Creatinine 0.77 Estim Creat Clear Calc 87.02 Est GFR (MDRD) Af Amer 121 Est GFR (MDRD) Non-Af 100 BUN/Creatinine Ratio 18.2 Glucose 110 H Calcium 9.0 Urine Test Salicylates < 1.7 L Urine Opiates Screen NEGATIVE Urine Methadone Screen NEGATIVE Acetaminophen < 2.0 L Ur Barbiturates Screen NEGATIVE Ur Phencyclidine Scrn NEGATIVE Ur Amphetamines Screen NEGATIVE MDMA (Ecstasy) Screen NEGATIVE U Benzodiazepines Scrn NEGATIVE Urine Cocaine Screen NEGATIVE U Cannabinoids Screen NEGATIVE Ur Drug Screen Comment Ethyl Alcohol < 3.0 12/22/21 23:55 Sodium Potassium Chloride Carbon Dioxide Anion Gap BUN Creatinine Estim Creat Clear Calc Est GFR (MDRD) Af Amer Est GFR (MDRD) Non-Af BUN/Creatinine Ratio Glucose Calcium Urine Test Negative Salicylates Urine Opiates Screen Urine Methadone Screen Acetaminophen Ur Barbiturates Screen Ur Phencyclidine Scrn Ur Amphetamines Screen MDMA (Ecstasy) Screen U Benzodiazepines Scrn Urine Cocaine Screen U Cannabinoids Screen Ur Drug Screen Comment Ethyl Alcohol Discharge Plan Triage Chief Complaint: Mental Health ED Provider: Bryan Werner Dx/Rx/DC Orders Clinical Impression: Stress reaction, Anxiety and depression Prescriptions: No Action PNV cmb#95-ferrous fumarate-FA 1 EACH tablet 1 ea PO DAILY RF: 0 hydrocortisone 1 APPLIC cream 1 applic topical BID.TCU RF: 0 methylprednisolone 4 MG tablets,dose pack See Rx Instructions PO PER PKG DIR RF: 0 hydrocortisone 1 APPLIC cream 1 applic topical TID PRN PRN (Reason: Rash/Topical Irritation) Qty: 1 RF: 2 Primary Care Provider: Barrington Johnson Referrals: Barrington Johnson MD [Primary Care Provider] - Disposition Disposition: Home, Self Care Discharge Date/Time: 12/23/21 02:10
== END 2021-12-23 02:10 | disposition home or self-care (01) ==
PROVIDERS: Emergency Provider Emergency Medicine; PCP Pediatrics; Visit Provider Emergency Medicine
DX: F43.9 Reaction to severe stress, unspecified (principal); F41.9 Anxiety disorder, unspecified; F32.A Depression, unspecified; Z79.52 Long term (current) use of systemic steroids; Z79.899 Other long term (current) drug therapy
CPT/HCPCS: 36415; 80048; 80307; 80329; 81025; 82077; 85025; 93005; 99283; 99285; G0480